=== PATIENT | male | born 1960 | race Caucasian/White ===

== ENCOUNTER 2021-12-21 14:31 | Emergency (ER) | payer SELFPAY ==
[~2021-12-21] VITALS: Ht 175.3 cm; Wt 74.8 kg
[2021-12-21] MEDS ORDERED: KETOROLAC TROMETHAMINE 30 MG/ML VIAL IM STA (15:07)
[2021-12-21] MEDS ORDERED: HYDROCODONE/APAP 5MG-325MG TAB PO ONE (15:15)
[2021-12-21] MEDS ORDERED: HYDROCODON-ACE1 EA11 PO (16:30)
[2021-12-21] MEDS ORDERED: NAPROXEN250 MG PO (16:30)
== END 2021-12-21 16:59 | disposition home or self-care (01) ==
LOC: ER 14:36
DX: M25.561 Pain in right knee (principal); X50.0XXA Overexertion from strenuous movement or load, initial encounter; Y99.0 Civilian activity done for income or pay
CPT/HCPCS: 99283